=== PATIENT | female | born 1970 | race Caucasian/White ===

== ENCOUNTER 2020-11-15 07:14 | Emergency (ER) | payer BC, SELFPAY ==
[~2020-11-15] VITALS: Ht 172.7 cm; Wt 86.2 kg
[2020-11-15 07:18] VITALS: BP 135/79; Ht 172.7 cm; Wt 86.2 kg
== END 2020-11-15 07:43 | disposition home or self-care (01) ==
LOC: ED 07:14
DX: R51.9 Headache, unspecified (principal); R53.1 Weakness; R53.83 Other fatigue; Z20.828 Contact with and (suspected) exposure to other viral communicable diseases